=== PATIENT | male | born 2000 | race Caucasian/White ===

== ENCOUNTER 2019-08-08 15:10 | Emergency (ER) | payer MEDICAID, OTHER ==
[~2019-08-08] VITALS: Ht 180.3 cm; Wt 56.7 kg
[2019-08-08 16:35] VITALS: BP 142/96
== END 2019-08-08 18:16 | disposition home or self-care (01) ==
LOC: ER 15:10
DX: S62.366A Nondisplaced fracture of neck of fifth metacarpal bone, right hand, initial encounter for closed fracture (principal); W22.8XXA Striking against or struck by other objects, initial encounter; Y93.89 Activity, other specified; Y99.8 Other external cause status; Y92.89 Other specified places as the place of occurrence of the external cause
CPT/HCPCS: 29125; 73130